=== PATIENT | male | born 1980 | race Caucasian/White ===

== ENCOUNTER 2019-04-19 15:00 | Emergency (ER) | payer SELFPAY ==
[~2019-04-19] VITALS: Wt 80.0 kg
[~2019-04-19 15:00] MED LIST: CYCL10TA7 PO; IBUP800T48 PO
[2019-04-19 15:05] VITALS: BP 150/91; PULSE 90; RESP 18
--- NOTE | 2019-04-19 15:56 | ERD ---
ER Documentation Chief Complaint Chief Complaint back pain x 1 mos HPI 38-year-old male is here with lower back pain that is had for 1 month. Sometimes it radiates to his right hip. No abdominal pain. No fever. No dysuria hematuria or urinary frequency. No flank pain. No nausea vomiting or diarrhea. No testicular pain. No bowel or bladder incontinence. No saddle anesthesia. Has not taken any medications for his symptoms. Denies any trauma. ROS All systems reviewed and are negative except as per history of present illness. Medications Home Meds Active Scripts Cyclobenzaprine Hcl* (Cyclobenzaprine Hcl*) 10 Mg Tablet, 10 MG PO Q8 PRN for MUSCLE SPASMS, #20 TAB Prov:ANDRES WATSON PA-C 04/19/19 Ibuprofen* (Motrin*) 800 Mg Tab, 800 MG PO Q6, #30 TAB Prov:ANDRES WATSON PA-C 04/19/19 FmHx Family History: No diabetes Physical Exam Vitals Vital Signs Date Temp Pulse Resp B/P (MAP) Pulse Ox O2 O2 Flow FiO2 Time Delivery Rate 04/19/19 97.7 90 18 150/91 99 15:05 (110) Physical Exam INITIAL VITAL SIGNS: Reviewed by me GENERAL: Awake, alert and oriented x 4, well appearing, nontoxic, speaking in full sentences. No acute distress HEAD: Atraumatic RESPIRATORY: Clear to auscultation bilaterally. Symmetric chest wall rise. No wheezing or rales. No accessory muscle use. CV: Regular rate and rhythm. No murmurs, rubs, or gallops. ABDOMEN: Soft, non-distended. Nontender. Negative [place]. Negative McBurneys point tenderness. No CVA tenderness bilaterally. No guarding. No rebound. Back Exam: Compartments: Soft Motor: Normal flexion and extension of bilateral hip/knee/ankle/foot Sensation: Intact to light touch throughout Bones: No midline TTP Procedures/MDM Patient with back pain. The differential diagnosis includes but is not limited to muscle strain, ligament strain, contusion, arthritis, discogenetic disease, non-musculoskeletal, cauda equina syndrome, cord compression, abscess and others. No bowel or bladder incontinence or saddle anesthesia. X-rays show no acute abnormality. Prescription for Motrin and Flexeril given. Patient counseled regarding my diagnostic impression and care plan. Prior to discharge all questions answered. Pt agrees with treatment plan and understands strict return precautions. Pt is instructed to follow up with primary care provider within 24-48 hours. Precautionary instructions provided including instructions to return to the ER if not improving or for any worsening or changing symptoms or concerns. Departure Diagnosis: Primary Impression: Back pain Condition: Stable Patient Instructions: Back Pain (Acute Or Chronic) Additional Instructions: Llame al doctor PRADIP y cassius nyla MIO PARA DENTRO DE 1-2 PEGUERO.Dgale a la secretaria que nosotros le instruimos hacer esta mio.Avise o llame si jha condicin se empeora antes de la mio. Regresa aqui si peor o no mejor. ANDRES WATSON PA-C Apr 19, 2019 15:56
== END 2019-04-19 15:54 | disposition home or self-care (01) ==
LOC: E/R 15:00
DX: M54.5 Low back pain (principal)
CPT/HCPCS: 72100; 99283